=== PATIENT | male | born 1980 | race Caucasian/White ===

== ENCOUNTER 2016-09-26 10:49 | Inpatient (IN) | payer OTHER ==
[2016-09-27] MEDS ORDERED: PRIL20CA9 PO (06:46)
[2016-09-27] MEDS ORDERED: NAPR500T PO (06:46)
[2016-09-27] MEDS ORDERED: ERGO1CAP10 PO (06:46)
[2016-09-27] MEDS ORDERED: LISI20TA PO (06:46)
[2016-09-27] MEDS ORDERED: OMEP40CA2 PO (06:46)
[2016-09-27] MEDS ORDERED: LACTATED RINGER'S 1000 ML IV PRN (07:00)
[2016-09-27] MEDS ORDERED: VANCOMYCIN 1,250 MG/NS 250 ML (for 70-84 kg) IV SCH ×2 (07:00)
[2016-09-27] MEDS ORDERED: APREPITANT 40 MG CAP PO SCH (07:00)
[2016-09-27] MEDS ORDERED: METOPROLOL TARTRATE 25 MG TAB PO PRN (07:00)
[2016-09-27] MEDS ORDERED: CHLORHEXIDINE GLUCONATE 2 % 1 PACK (2 CLOTHS) TOPICAL PRN (07:00)
[2016-09-27] MEDS ORDERED: INSULIN HUMAN REGULAR 1,000 UNITS/10 ML VIAL SQ PRN (07:00)
[2016-09-27] MEDS ORDERED: POVIDONE IODINE 5% (ANTISEPSIS KIT) 4 APPLICATIONS EACH NARE PRN (07:00)
[2016-09-27] MEDS ORDERED: ACETAMINOPHEN 1000 MG/100 ML VIAL IV SCH (07:00)
[2016-09-27] MEDS ORDERED: SODIUM CHLORID 0.9% 500 ML IV PRN (07:00)
[2016-09-27] MEDS ORDERED: metroNIDAZOLE 500 MG INJ 100 ML IV SCH (07:00)
[2016-09-27] MEDS ORDERED: SCOPOLAMINE 1.5 MG PATCH T-DERMAL SCH (07:00)
[2016-09-27] MEDS ORDERED: ONDANSETRON HCL 4 MG/2 ML VIAL IV PUSH SCH (07:00)
[2016-09-27 07:01] VITALS: BP 140/81; PULSE 67; RESP 20; TEMP 98.6; O2SAT 95
[2016-09-27] MEDS ORDERED: DICLOFENAC SODIUM 37.5 MG/ML VIAL IV PUSH ONE (07:02)
[2016-09-27] MEDS ORDERED: ACETAMINOPHEN 1000 MG/100 ML VIAL IV ONE (07:02)
[2016-09-27] MEDS ORDERED: FAMOTIDINE 20 MG/2 ML VIAL ONE (07:54)
[2016-09-27] MEDS ORDERED: BUPIVACAINE/EPINEPHRINE 0.25% 50 ML VIAL ONE (07:59)
[2016-09-27] MEDS ORDERED: ENALAPRILAT 1.25 MG/ML VIAL IV PUSH PRN (10:15)
[2016-09-27] MEDS ORDERED: ACETAMINOPHEN 325MG/HYDROcodone 7.5MG/15ML UDC PO PRN ×2 (10:15)
[2016-09-27] MEDS ORDERED: diphenhydrAMINE HCL 50 MG/ML VIAL IV PRN (10:15)
[2016-09-27] MEDS ORDERED: diphenhydrAMINE HCL ELIXIR 12.5 MG/5 ML CUP PO PRN (10:15)
[2016-09-27] MEDS ORDERED: NALOXONE HCL 0.4 MG/ML AMP IV PRN (10:15)
[2016-09-27] MEDS ORDERED: ONDANSETRON HCL 4 MG/2 ML VIAL IV PRN (10:15)
[2016-09-27] MEDS ORDERED: Post-op Orders (for Pharmacy) MISC OTHER ONE (10:15)
[2016-09-27] MEDS ORDERED: SODIUM CHLORIDE 0.9% FLUSH 10 ML FLUSH PRN (10:15)
[2016-09-27] MEDS ORDERED: DO NOT ADM ANY ANTICOAGULANT DRUGS PRN (10:27)
[2016-09-27] MEDS ORDERED: fentaNYL CITRATE 250 MCG/5 ML AMP ONE (10:36)
--- NOTE | 2016-09-27 10:51 | MP ---
cc: ABEL DASILVA DATE OF SURGERY: 09/27/2016 1980 PREOPERATIVE DIAGNOSIS Severe obesity with BMI of 37, complicated by gastroesophageal reflux disease. POSTOPERATIVE DIAGNOSIS Severe obesity with BMI of 37, complicated by gastroesophageal reflux disease, hiatal hernia. PROCEDURE 1. Laparoscopic Geena-en-Y gastric bypass 100 cm Geena limb, antegastric, antecolic. 2. Laparoscopic repair of hiatal hernia. SURGEON Abel Dasilva MD [employer] Parth Escobar ANESTHESIA General endotracheal anesthesia. ESTIMATED BLOOD LOSS Scant. FINDINGS Fatty liver. SPECIMENS None. COMPLICATIONS None. OPERATION The patient was brought to the operating room and placed on the operating table in supine position, bilateral sequential inflation device placed on lower extremities, general anesthesia instituted, antibiotics initiated. The abdomen was prepped and draped sterilely. A point 18-cm distal to the xiphoid in the midline anesthetized with 0.25% Marcaine with epinephrine. The skin incision was made, a 5-mm OptiView port placed under direct vision and pneumoperitoneum was created. Under direct vision a 5-mm left upper quadrant, 12-mm left upper quadrant, 12-mm right upper quadrant and 5-mm right upper quadrant ports were placed. Prior to placement of all ports, the skin and peritoneum were anesthetized with 0.25% Marcaine with epinephrine. The patient's omentum was lifted into the upper abdomen. It was split down the middle to create a path for the Geena limb. The ligament of Treitz was identified, a point 40 cm distal identified. The small bowel was divided in this region using an [place] Flex stapler vascular load reinforced with SeamGuard. The distal segment was brought up for a distance of 100 cm, enterotomy created in this region, enterotomy in the biliopancreatic limb and a [id number]-ik-[id number] stapled jejunojejunostomy created in the usual manner. The mesenteric defect at the jejunojejunostomy was closed with 2-0 Surgidac suture in a running manner. The patient was placed in reverse Trendelenburg position with the left side up. The Chere[place]-Flex retractor was placed. The left lobe of the liver was retracted. The patient had a hiatal hernia identified. The left and right crura of the diaphragm was dissected anteriorly. The GE junction mobilized into the abdominal cavity. The hernia excised, the angle of His was taken down. The noel of the diaphragm approximated with 0-Silk suture in a [id number]-[id number] manner. A point 5 cm distal to the GE junction along the lesser curve identified, the lesser sac entered using blunt dissection. The stomach was partitioned horizontally using an [place]-Flex stapler blue load, an additional firing taken directed towards the angle of His to completely divide the stomach. A gastrotomy created in the new stomach, enterotomy in the Geena limb and gastrojejunostomy created, stomal opening of 2 cm. An 18-[place] OG tube was placed across the anastomosis, the defect then closed in two layers of running 2-0 Vicryl. Prior to placement of the second layer, methylene blue instilled through the OG tube. There was no evidence of extravasation. Evicel was then placed over the gastrojejunostomy, jejunojejunostomy and all staple lines. The operative field inspected and hemostasis was present. The CO2 was released, all ports were removed. All skin incisions were closed with 4-0 Monocryl. The abdominal wall was cleaned and a sterile dressing placed. The patient was awakened and taken to the recovery room. MD MILLER Zhao/ALFREDO /10:18 AM /10:33 AM MTDD
[2016-09-27] MEDS: D5-1/2 NS + KCL 20 MEQ INJ 1,000 ML IV SCH ×3 (11:15→20:19)
[2016-09-27] MEDS ORDERED: MORPHINE SULFATE 30 MG/30 ML PCA IV SCH (11:30)
[2016-09-27] MEDS ORDERED: MORPHINE SULFATE 8 MG/ML INJ ONE (11:45)
[2016-09-27] MEDS: METOCLOPRAMIDE HCL 10 MG/2 ML VIAL IV PUSH SCH ×3 (11:51→23:16)
[2016-09-27] MEDS ORDERED: PHENYLEPH/NS 1000 MCG/10 ML SYR IV ONE (12:00)
[2016-09-27] MEDS ORDERED: NEOSTIGMINE 3 MG/3 ML SYR IV ONE (12:00)
[2016-09-27] MEDS ORDERED: ONDANSETRON HCL 4 MG/2 ML VIAL IV PUSH ONE (12:00)
[2016-09-27] MEDS ORDERED: LACTATED RINGER'S 1000 ML INJ 1,000 ML IV ONE (12:00)
[2016-09-27] MEDS ORDERED: PROPOFOL 200 MG/20 ML AMP IV ONE (12:00)
[2016-09-27] MEDS ORDERED: METHYLENE BLUE 10 MG/ML VIAL IV ONE (12:00)
[2016-09-27 12:53] VITALS: BP 150/89; PULSE 85; RESP 16; TEMP 96.2; O2SAT 97
[2016-09-27] MEDS: PCA - TOTAL MG MORPHINE DELIVERED PER SHIFT SCH ×2 (14:00→20:19)
[2016-09-27] MEDS ORDERED: ENOXAPARIN SODIUM 40 MG/0.4 ML SYRINGE SQ SCH (14:00)
[2016-09-27] MEDS: metroNIDAZOLE 500 MG INJ 100 ML IV SCH ×2 (15:27→23:16)
[2016-09-27 16:00] VITALS: BP 148/107; PULSE 96; RESP 20; O2SAT 97
[2016-09-27 16:14] VITALS: O2SAT 95
[2016-09-27] MEDS: RESP: ALBUTEROL 2.5 MG/3 ML NEB (SCH) INH ×2 (16:14→20:25)
[2016-09-27 20:00] VITALS: BP 158/90; PULSE 85; RESP 18; TEMP 98.6; O2SAT 98
[2016-09-27] MEDS: SODIUM CHLORIDE 0.9% FLUSH 10 ML FLUSH IV FLUSH SCH (20:19)
[2016-09-27] MEDS: VANCOMYCIN INJ 1,000 MG in SODIUM CHLOR 0.9% 250 ML INJ 250 ML IV SCH (20:19)
[2016-09-28] VITALS: BP 166/109; PULSE 85; RESP 20; TEMP 97.9; O2SAT 96
[2016-09-28 00:30] VITALS: BP 137/87
[2016-09-28] MEDS: D5-1/2 NS + KCL 20 MEQ INJ 1,000 ML IV SCH ×3 (01:20→12:00)
[2016-09-28] MEDS: RESP: ALBUTEROL 2.5 MG/3 ML NEB (SCH) INH ×4 (01:23→12:34)
[2016-09-28 03:27] VITALS: O2SAT 99
[2016-09-28 04:00] VITALS: BP 141/79; PULSE 79; RESP 18; TEMP 97.3; O2SAT 98
[2016-09-28] MEDS: PCA - TOTAL MG MORPHINE DELIVERED PER SHIFT SCH ×2 (04:50→12:18)
[2016-09-28] MEDS: METOCLOPRAMIDE HCL 10 MG/2 ML VIAL IV PUSH SCH (04:50)
[2016-09-28 05:41] LABS: AUTOMATED NEUTROPHIL # 9.9 TH/MM3 (1.8-7.7); BASOPHIL % 0.1 % (0.0-2.0); HEMATOCRIT 41.2 % (39.0-51.0); HEMO FLAGS DIFF FINAL; LYMPH % 6.7 % (9.0-44.0); LYMPHOCYTE # 0.8 TH/MM3 (1.0-4.8); MEAN CELL VOLUME 85.6 FL (80.0-100.0); MEAN CORPUSCULAR HEMOGLOBIN 29.4 PG (27.0-34.0); MEAN CORPUSCULAR HGB CONC 34.3 % (32.0-36.0); MONO % 8.2 % (0.0-8.0); PLATELET COUNT 229 TH/MM3 (150-450); RED BLOOD COUNT 4.82 MIL/MM3 (4.50-5.90); RED CELL DISTRIBUTION WIDTH 13.5 % (11.6-17.2); WHITE BLOOD COUNT 11.7 TH/MM3 (4.0-11.0)
[2016-09-28 06:05] LABS: BICARBONATE 25.2 MEQ/L (21.0-32.0); MAGNESIUM 2.3 MG/DL (1.5-2.5); POTASSIUM 4.1 MEQ/L (3.5-5.1)
[2016-09-28] MEDS: metroNIDAZOLE 500 MG INJ 100 ML IV SCH (06:28)
[2016-09-28 08:00] VITALS: BP 134/80; PULSE 90; RESP 16; TEMP 96.5; O2SAT 98
[2016-09-28] MEDS: VANCOMYCIN INJ 1,000 MG in SODIUM CHLOR 0.9% 250 ML INJ 250 ML IV SCH (08:36)
[2016-09-28] MEDS: SODIUM CHLORIDE 0.9% FLUSH 10 ML FLUSH IV FLUSH SCH (08:36)
[2016-09-28] MEDS ORDERED: PANTOPRAZOLE SOD 40 MG DELAYED RELEASE TAB PO SCH (09:00)
[2016-09-28 09:01] VITALS: O2SAT 98
[2016-09-28] MEDS ORDERED: METOCLOPRAMIDE HCL 10 MG/2 ML VIAL IV PUSH PRN (10:15)
--- NOTE | 2016-09-28 12:14 | HHI.PR ---
Subjective Subjective Notes 36yo male POD#1 RNY. Sitting up in bed in no acute distress. No complaints at this time. Passing flatus Objective Vitals/I&O Vital Signs Date Time Temp Pulse Resp B/P Pulse Ox O2 Delivery O2 Flow Rate FiO2 09/28/16 09:01 98 Nasal Cannula 2.00 09/28/16 08:00 96.5 90 16 134/80 Labs Laboratory Tests Test 09/28/16 04:51 White Blood Count 11.7 Red Blood Count 4.82 Hemoglobin 14.2 Hematocrit 41.2 Mean Corpuscular Volume 85.6 Mean Corpuscular Hemoglobin 29.4 Mean Corpuscular Hemoglobin 34.3 Concent Red Cell Distribution Width 13.5 Platelet Count 229 Mean Platelet Volume 9.3 Neutrophils (%) (Auto) 85.0 Lymphocytes (%) (Auto) 6.7 Monocytes (%) (Auto) 8.2 Eosinophils (%) (Auto) 0.0 Basophils (%) (Auto) 0.1 Neutrophils # (Auto) 9.9 Lymphocytes # (Auto) 0.8 Monocytes # (Auto) 1.0 Eosinophils # (Auto) 0.0 Basophils # (Auto) 0.0 CBC Comment DIFF FINAL Differential Comment Sodium Level 140 Potassium Level 4.1 Chloride Level 108 Carbon Dioxide Level 25.2 Anion Gap 7 Blood Urea Nitrogen 9 Creatinine 1.15 Estimat Glomerular Filtration 73 Rate Random Glucose 138 Calcium Level 8.8 Magnesium Level 2.3 Cardiovascular: Regular Lungs: Clear Abdomen: Post-op tenderness Extremities: Perfused Wound Wound : Wound Location: Abdomen Appearance: Clean & Dry A/P Assessment and Plan Continue with frequent ambulation Continue to increase fluids as tolerated The exam, history, and the medical decision-making described in the above note were completed with the assistance of the mid-level provider. I reviewed and agree with the findings presented. I attest that I had a [id number] encounter with the patient on the same day, and personally performed and documented my assessment and findings in the medical record. Discharge Planning D/C home today Pricila Romo September 28, 2016 12:14 Perez Dasilva MD Oct 31, 2016 10:44
== END 2016-09-28 14:13 | disposition home or self-care (01) | DRG 621 ==
LOC: HSDI 09-27 05:18 → N07B 09-27 12:49
PROVIDERS: ADMIT Surgery; ATTEND Surgery
PROC: 0BQS4ZZ (ICD-10-PCS; 2016-09-27)
PROC: 0BQR4ZZ (ICD-10-PCS; 2016-09-27)
PROC: 0D164ZA Bypass Stomach to Jejunum, Percutaneous Endoscopic Approach (ICD-10-PCS; principal; 2016-09-27 07:58)
DX: E66.01 Morbid (severe) obesity due to excess calories (principal); K76.0 Fatty (change of) liver, not elsewhere classified; I10 Essential (primary) hypertension; K21.9 Gastro-esophageal reflux disease without esophagitis; Z68.37 Body mass index [BMI] 37.0-37.9, adult; K44.9 Diaphragmatic hernia without obstruction or gangrene
CPT/HCPCS: 80048; 83735; 85025; 94150; 94640; 94664; J0131; J1130; J1650; J2270; J2370; J2405; J2710; J2765; J3010; J3370; J3480; J7050; J7120; J7613; J8501